=== PATIENT | male | born 1990 | race Caucasian/White ===

== ENCOUNTER 2021-11-22 04:58 | Day surgery (SDC) | payer OTHER ==
[2021-11-16 15:47] VITALS: BMI 33.7
[2021-11-22] MEDS ORDERED: TETRACAINE/BENZOCAINE/BUTAMBEN 20 GM SPR TP ONE ×2 (09:55→09:56)
[2021-11-22 11:10] VITALS: BP 131/83; PULSE 76; TEMP 98
== END 2021-11-22 11:08 | disposition home or self-care (01) ==
LOC: JASU-ENDO 04:58
PROVIDERS: ATTEND Internal Medicine Gastroenterology
PROC: 0DB68ZX Excision of Stomach, Via Natural or Artificial Opening Endoscopic, Diagnostic (ICD-10-PCS; principal; 2021-11-22 09:15)
DX: I85.00 Esophageal varices without bleeding (principal); K29.50 Unspecified chronic gastritis without bleeding; K70.30 Alcoholic cirrhosis of liver without ascites; Z72.0 Tobacco use
CPT/HCPCS: 88305-TC; 88342-TC